=== PATIENT | male | born 1950 | race Caucasian/White ===

== ENCOUNTER 2016-12-15 06:37 | Inpatient (IN) | payer MEDICARE, MEDICAID ==
[2016-12-15] VITALS (21 sets, daily range): BP systolic 137–195; BP diastolic 67–92
[~2016-12-15] VITALS: Ht 167.6 cm; Wt 79.4 kg
[~2016-12-15 06:37] MED LIST: ASPI-986 PO; GABA-531 PO; LOSA50TA20 PO; METF10002 PO; METO100T5 PO; PANT40TA4 PO; POTA10TA11 PO; SIMV40TA5 PO; [UNRECOGNIZED DRUG - OTHER] PO
[2016-12-15] MEDS ORDERED: FURO-151 PO (07:40)
[2016-12-15] MEDS ORDERED: WARF6TAB21 PO (07:40)
[2016-12-15] MEDS ORDERED: FERR325T6 PO (07:40)
[2016-12-15] MEDS ORDERED: GABA-531 PO (07:40)
[2016-12-15] MEDS ORDERED: POTA20TA12 PO (07:40)
[2016-12-15] MEDS ORDERED: METO100T5 PO (07:40)
[2016-12-15] MEDS ORDERED: LIDOCAINE HCL 1% 20ML VIAL (Pyxis) INJ ONE (08:22)
[2016-12-15] MEDS ORDERED: IOHEXOL-300 100 ML BOTTLE ONE (08:23)
[2016-12-15] MEDS ORDERED: MIDAZOLAM HCL 2 MG/2 ML VIAL ONE ×3 (08:37→10:13)
[2016-12-15] MEDS ORDERED: FENTANYL CITRATE/PF 50MCG/ML 2ML VIAL ONE ×2 (08:37→10:13)
[2016-12-15] MEDS ORDERED: IOVERSOL 240MG/ML 100ML BOTTLE IV ONE (09:20)
[2016-12-15] MEDS ORDERED: HYDROMORPHONE HCL/PF 2MG/ML (OR) ONE (09:29)
[2016-12-15] MEDS ORDERED: ASPIRIN 325MG TABLET ONE (10:46)
[2016-12-15] MEDS ORDERED: ATROPINE SULFATE 1MG/10ML SYR IV PRN (11:00)
[2016-12-15] MEDS ORDERED: ACETAMINOPHEN 325MG TABLET PO PRN (11:00)
[2016-12-15] MEDS ORDERED: HEPARIN SODIUM 1,000 UNIT/1ML VIAL IV ONE (11:51)
[2016-12-15] MEDS ORDERED: AMLODIPINE 5MG TABLET PO NR (13:15)
[2016-12-15] MEDS ORDERED: LOSARTAN POTASSIUM 50 MG TABLET PO NR (13:15)
[2016-12-15] MEDS: BLOOD SUGAR DIAGNOSTIC STRIP TEST SCH (23:55)
[2016-12-16] VITALS (7 sets, daily range): BP systolic 128–142; BP diastolic 61–76
[2016-12-16] MEDS ORDERED: LORAZEPAM 1MG TABLET PO PRN (00:15)
[2016-12-16] MEDS ORDERED: DEXTROSE 50% WATER 50ML SYRINGE IV PRN (00:15)
[2016-12-16] MEDS: INSULIN LISPRO 100 UNITS/ML SUBCUT SCH ×2 (00:24→07:20)
[2016-12-16] MEDS: BLOOD SUGAR DIAGNOSTIC STRIP TEST SCH (06:21)
[2016-12-16 07:17] LABS: BASOPHILS % 0.2 % (0.0-2.0); EOSINOPHILS % 1.1 % (0.0-5.0); HEMATOCRIT. 36.9 % (42.0-52.0); HEMOGLOBIN. 12.3 g/dL (14.0-18.0); MEAN CORPUSCULAR VOLUME 77.7 fL (80.0-94.0); MEAN PLATELET VOLUME 7.5 fl (7.4-10.4); MONOCYTES % 9.5 % (2.0-8.0); NEUTROPHILS % 71.2 % (40.0-76.0); PLATELET 228 x1000/uL (130-400); RED BLOOD CELL COUNT 4.75 mill/uL (4.7-6.1); RED CELL DISTRIBUTION WIDTH 14.8 % (11.6-14.6)
[2016-12-16 08:32] LABS: CARBON DIOXIDE 27 mEq/L (21-32); CHLORIDE 97 mEq/L (98-107)
[2016-12-16] MEDS ORDERED: AMLODIPINE 5MG TABLET PO SCH (09:00)
[2016-12-16] MEDS ORDERED: LOSARTAN POTASSIUM 50 MG TABLET PO SCH (09:00)
[2016-12-16] MEDS ORDERED: ASPIRIN 325MG EC TABLET PO SCH (09:00)
== END 2016-12-16 10:30 | disposition home or self-care (01) | DRG 272 ==
LOC: CCL 06:37 → 3WST 06:38
PROVIDERS: ADMIT Specialist; ATTEND Specialist
PROC: 047K3ZZ Dilation of Right Femoral Artery, Percutaneous Approach (ICD-10-PCS; principal; 2016-12-15)
PROC: 04CK3ZZ Extirpation of Matter from Right Femoral Artery, Percutaneous Approach (ICD-10-PCS; 2016-12-15)
PROC: B41F1ZZ Fluoroscopy of Right Lower Extremity Arteries using Low Osmolar Contrast (ICD-10-PCS; 2016-12-15)
DX: E11.51 Type 2 diabetes mellitus with diabetic peripheral angiopathy without gangrene (principal); I10 Essential (primary) hypertension; I70.201 Unspecified atherosclerosis of native arteries of extremities, right leg; I25.10 Atherosclerotic heart disease of native coronary artery without angina pectoris; Z95.1 Presence of aortocoronary bypass graft
CPT/HCPCS: 36415; 37225; 75710; 80048; 82962; 85025; 85347; C1725; C1726; C1760; C1769; C1887; C1893; C1894; J1170; J1644; J1815; J2250; J3010; J3490; J7030; Q9967

== ENCOUNTER 2018-03-04 09:39 | Inpatient (IN) | payer MEDICARE, OTHER ==
[~2018-03-04] VITALS: Ht 167.6 cm; Wt 73.1 kg
[~2018-03-04 09:39] MED LIST changes: +FERR325T6 PO; +FURO-151 PO; +METF-416 PO; -METF10002 PO; +METO100T16 PO; -METO100T5 PO; -POTA10TA11 PO; +POTA20TA12 PO; +WARF6TAB48 PO
[2018-03-04] MEDS ORDERED: MAGNESIUM 2 G PREMIX 50 ML IV STA (10:03)
[2018-03-04] MEDS ORDERED: METHYLPREDNISOLONE SOD SUCC 125 MG/2 ML VIAL IV STA (10:03)
[2018-03-04] MEDS ORDERED: IPRATROPIUM BROMIDE (0.02%) 0.5MG/2.5ML NEB HHN STA (10:03)
[2018-03-04] MEDS ORDERED: ALBUTEROL (0.083%) 2.5MG/3ML NEB HHN STA (10:03)
[2018-03-04 10:30] LABS: BASOPHILS % 0.3 % (0.0-2.0); EOSINOPHILS % 0.7 % (0.0-5.0); HEMATOCRIT. 34.5 % (42.0-52.0); HEMOGLOBIN. 11.2 g/dL (14.0-18.0); LYMPHOCYTES % 18.7 % (20.0-50.0); MEAN CORPUSCULAR HEMOGLOBIN 24.7 pg (28.0-32.0); MEAN CORPUSCULAR VOLUME 76.2 fL (80.0-94.0); MEAN PLATELET VOLUME 6.9 fl (7.4-10.4); MONOCYTES % 8.8 % (2.0-8.0); NEUTROPHILS % 71.5 % (40.0-76.0); PLATELET 327 x1000/uL (130-400); RED BLOOD CELL COUNT 4.53 mill/uL (4.7-6.1); RED CELL DISTRIBUTION WIDTH 16.5 % (11.6-14.6)
[2018-03-04 10:36] LABS: CHLORIDE 97 mEq/L (98-107)
[2018-03-04] MEDS ORDERED: FUROSEMIDE 40MG/4ML VIAL IVP ONE (11:45)
[2018-03-04] MEDS ORDERED: DOCUSATE SODIUM 100MG CAPSULE PO PRN (14:15)
[2018-03-04] MEDS ORDERED: TRAMADOL 50MG TABLET PO PRN (14:15)
[2018-03-04] MEDS ORDERED: CLONIDINE 0.1MG TABLET PO PRN (14:15)
[2018-03-04] MEDS ORDERED: ACETAMINOPHEN 325MG TABLET PO PRN (14:15)
[2018-03-04] MEDS ORDERED: GUAIFENESIN 200MG/10ML SUGAR FREE UDC PO PRN (14:15)
[2018-03-04] MEDS ORDERED: NITROGLYCERIN 0.4MG TABLET SL SL PRN (14:15)
[2018-03-04] MEDS ORDERED: DEXTROSE 50% WATER 50ML SYRINGE IV PRN (14:15)
[2018-03-04] MEDS ORDERED: NA PHOS,M-B/NA PHOS,DI-BA ENEMA 118ML PR PRN (14:15)
[2018-03-04] MEDS ORDERED: MAGNESIUM/ALUMINUM HYDROXIDE/SIMETHICONE 30ML UDC PO PRN (14:15)
[2018-03-04] MEDS ORDERED: ONDANSETRON HCL 4MG/2ML INJ IV PRN (14:15)
[2018-03-04] MEDS ORDERED: IPRATROPIUM/ALBUTEROL 0.5-3(2.5)MG/3ML NEB INH PRN (14:15)
[2018-03-04] MEDS ORDERED: MORPHINE SULFATE 10 MG/ML CPJ IV PRN (14:45)
[2018-03-04 14:55] VITALS: BP 149/79
[2018-03-04 15:00] VITALS: BP 149/79
[2018-03-04 15:01] LABS: VITAMIN B12 SERUM < 60 pg/mL (211-911)
[2018-03-04] MEDS: ENOXAPARIN 40MG/0.4ML SYR SUBCUT SCH (15:09)
[2018-03-04] MEDS: LISINOPRIL 10MG TABLET PO SCH ×2 (15:10→23:30)
[2018-03-04] MEDS ORDERED: LORA1TAB PO (15:24)
[2018-03-04] MEDS ORDERED: OMEP20CA10 PO (15:24)
[2018-03-04] MEDS ORDERED: DIPH1TAB24 PO (15:24)
[2018-03-04] MEDS ORDERED: ASPI-1159 PO (15:24)
[2018-03-04] MEDS ORDERED: MULT-379 PO (15:24)
[2018-03-04] MEDS ORDERED: CLOT15CR2 TP (15:27)
[2018-03-04] MEDS: FUROSEMIDE 40MG/4ML VIAL IVP SCH (17:08)
[2018-03-04] MEDS: CARVEDILOL 3.125 MG TABLET PO SCH (17:08)
[2018-03-04] MEDS: BLOOD SUGAR DIAGNOSTIC STRIP TEST SCH ×2 (17:08→21:31)
[2018-03-04] MEDS: SPIRONOLACTONE 25MG TABLET PO SCH (17:09)
[2018-03-04] MEDS: INSULIN LISPRO 100 UNITS/ML SUBCUT SCH ×2 (17:30→20:52)
[2018-03-04] MEDS: CYANOCOBALAMIN 1000MCG/ML VIAL IM SCH (18:44)
[2018-03-04] MEDS: FAMOTIDINE 20MG TABLET PO SCH (20:36)
[2018-03-04] MEDS: LORAZEPAM 1MG TABLET PO PRN (20:52)
[2018-03-04] MEDS ORDERED: ZOLPIDEM TARTRATE 5MG TABLET PO PRN (21:00)
[2018-03-05] VITALS: BP 111/50
[2018-03-05 00:59] LABS: CREATINE KINASE 102 IU/L (39-308)
[2018-03-05 01:00] LABS: CREATINE KINASE MB FRACTION 2.2 ng/mL (0.5-3.6)
[2018-03-05 04:00] VITALS: BP 108/51
[2018-03-05] MEDS: CARVEDILOL 3.125 MG TABLET PO SCH ×2 (06:00→17:58)
[2018-03-05] MEDS: FUROSEMIDE 40MG/4ML VIAL IVP SCH ×2 (06:06→17:58)
[2018-03-05] MEDS: SPIRONOLACTONE 25MG TABLET PO SCH ×2 (06:07→17:58)
[2018-03-05] MEDS: BLOOD SUGAR DIAGNOSTIC STRIP TEST SCH ×4 (06:07→20:35)
[2018-03-05] MEDS: INSULIN LISPRO 100 UNITS/ML SUBCUT SCH ×4 (06:47→20:33)
[2018-03-05 08:00] VITALS: BP 130/61
[2018-03-05 08:05] LABS: CREATINE KINASE 106 IU/L (39-308)
[2018-03-05] MEDS: ASPIRIN 325MG EC TABLET PO SCH ×2 (09:00→09:45)
[2018-03-05 09:11] LABS: *AMPHETAMINES SCREEN URINE NEGATIVE (NEGATIVE); *BARBITURATES SCREEN URINE NEGATIVE (NEGATIVE); *BENZODIAZEPINES SCREEN URINE NEGATIVE (NEGATIVE); *COCAINE SCREEN URINE NEGATIVE (NEGATIVE); METHADONE URINE SCREEN NEGATIVE (NEGATIVE)
[2018-03-05 09:12] LABS: CANNABINOID URINE SCREEN NEGATIVE (NEGATIVE); OPIATES URINE SCREEN NEGATIVE (NEGATIVE); PHENCYCLIDINE URINE SCREEN NEGATIVE (NEGATIVE)
[2018-03-05] MEDS: CYANOCOBALAMIN 1000MCG/ML VIAL IM SCH (09:45)
[2018-03-05] MEDS: LISINOPRIL 10MG TABLET PO SCH ×2 (09:45→20:35)
[2018-03-05] MEDS: FAMOTIDINE 20MG TABLET PO SCH ×2 (09:45→20:35)
[2018-03-05 12:00] VITALS: BP 143/77
[2018-03-05 16:00] VITALS: BP 121/59
[2018-03-05] MEDS: ENOXAPARIN 40MG/0.4ML SYR SUBCUT SCH (17:59)
[2018-03-05 20:00] VITALS: BP 127/59
[2018-03-06] VITALS: BP 117/51
[2018-03-06 04:00] VITALS: BP 124/46
[2018-03-06] MEDS: FUROSEMIDE 40MG/4ML VIAL IVP SCH ×2 (05:51→17:06)
[2018-03-06] MEDS: CARVEDILOL 3.125 MG TABLET PO SCH ×2 (05:51→17:07)
[2018-03-06] MEDS: SPIRONOLACTONE 25MG TABLET PO SCH ×2 (05:52→17:07)
[2018-03-06] MEDS: INSULIN LISPRO 100 UNITS/ML SUBCUT SCH ×4 (06:14→20:17)
[2018-03-06] MEDS: BLOOD SUGAR DIAGNOSTIC STRIP TEST SCH ×4 (06:14→20:17)
[2018-03-06 08:00] VITALS: BP 154/56
[2018-03-06] MEDS: LORAZEPAM 1MG TABLET PO PRN (08:48)
[2018-03-06] MEDS: CYANOCOBALAMIN 1000MCG/ML VIAL IM SCH (08:48)
[2018-03-06] MEDS: ASPIRIN 325MG EC TABLET PO SCH (08:49)
[2018-03-06] MEDS: FAMOTIDINE 20MG TABLET PO SCH ×2 (08:49→20:13)
[2018-03-06] MEDS: LISINOPRIL 10MG TABLET PO SCH ×2 (08:49→20:13)
[2018-03-06 12:00] VITALS: BP 144/60
[2018-03-06] MEDS: ENOXAPARIN 40MG/0.4ML SYR SUBCUT SCH (15:29)
[2018-03-06 16:00] VITALS: BP 165/68
[2018-03-06 20:00] VITALS: BP 135/74
[2018-03-07] VITALS: BP 113/51
[2018-03-07 04:00] VITALS: BP 113/54
[2018-03-07] MEDS: SPIRONOLACTONE 25MG TABLET PO SCH (05:31)
[2018-03-07] MEDS: CARVEDILOL 3.125 MG TABLET PO SCH (05:32)
[2018-03-07] MEDS: FUROSEMIDE 40MG/4ML VIAL IVP SCH (05:33)
[2018-03-07] MEDS: INSULIN LISPRO 100 UNITS/ML SUBCUT SCH ×2 (06:52→12:15)
[2018-03-07] MEDS: BLOOD SUGAR DIAGNOSTIC STRIP TEST SCH ×2 (06:52→11:36)
[2018-03-07 08:00] VITALS: BP 121/59
[2018-03-07] MEDS: ASPIRIN 325MG EC TABLET PO SCH (08:05)
[2018-03-07] MEDS: CYANOCOBALAMIN 1000MCG/ML VIAL IM SCH (08:05)
[2018-03-07] MEDS: FAMOTIDINE 20MG TABLET PO SCH (08:05)
[2018-03-07] MEDS: LISINOPRIL 10MG TABLET PO SCH (08:05)
[2018-03-07 13:21] VITALS: BP 121/59
== END 2018-03-07 14:35 | disposition home or self-care (01) | DRG 291 ==
LOC: ER 09:39 → 5WST 12:31 → EDBEDREQ 12:54 → EDBEDREQTM 12:54 → SUPCPDRO 13:40 → ENRESERV 13:59
PROVIDERS: ADMIT Internal Medicine; ATTEND Internal Medicine
DX: I11.0 Hypertensive heart disease with heart failure (principal); J96.00 Acute respiratory failure, unspecified whether with hypoxia or hypercapnia; E87.1 Hypo-osmolality and hyponatremia; E11.9 Type 2 diabetes mellitus without complications; D63.8 Anemia in other chronic diseases classified elsewhere; I25.10 Atherosclerotic heart disease of native coronary artery without angina pectoris; I50.33 Acute on chronic diastolic (congestive) heart failure; E53.8 Deficiency of other specified B group vitamins; I27.20 Pulmonary hypertension, unspecified; J44.9 Chronic obstructive pulmonary disease, unspecified; Z95.1 Presence of aortocoronary bypass graft; I25.2 Old myocardial infarction; Z79.4 Long term (current) use of insulin; Z79.899 Other long term (current) drug therapy; Z79.82 Long term (current) use of aspirin
CPT/HCPCS: 36415; 71045; 80061; 80305; 82550; 82553; 82607; 82746; 82962; 83036; 83540; 83550; 83880; 84484; 93005; 93306; 93970; 94644; 97161; 97166; 99285; J1650; J1815; J1940; J2930; J3420; J3475; J7611

== ENCOUNTER 2018-07-01 01:53 | Inpatient (IN) | payer MEDICARE, OTHER ==
[~2018-07-01] VITALS: Ht 167.6 cm; Wt 76.2 kg
[~2018-07-01 01:53] MED LIST changes: +ASPI-1159 PO; -ASPI-986 PO; +CLOT15CR2 TP; +DIPH1TAB24 PO; -FERR325T6 PO; +LORA1TAB PO; +MULT-379 PO; +OMEP20CA10 PO; -PANT40TA4 PO; -POTA20TA12 PO
[2018-07-01] MEDS ORDERED: FUROSEMIDE 40MG/4ML VIAL IV ONE (02:45)
[2018-07-01] MEDS ORDERED: ASPIRIN 81MG TABLET PO ONE (02:45)
[2018-07-01] MEDS ORDERED: NITROGLYCERIN OINT 1GM/INCH UDPKT TD ONE (02:45)
[2018-07-01 02:57] LABS: BASOPHILS % 0.2 % (0.0-2.0); EOSINOPHILS % 0.5 % (0.0-5.0); HEMATOCRIT. 38.8 % (42.0-52.0); HEMOGLOBIN. 12.3 g/dL (14.0-18.0); MEAN CORPUSCULAR HEMOGLOBIN 23.7 pg (28.0-32.0); MEAN CORPUSCULAR VOLUME 74.8 fL (80.0-94.0); MEAN PLATELET VOLUME 7.3 fl (7.4-10.4); MONOCYTES % 7.9 % (2.0-8.0); NEUTROPHILS % 73.4 % (40.0-76.0); PLATELET 353 x1000/uL (130-400); RED BLOOD CELL COUNT 5.18 mill/uL (4.7-6.1); RED CELL DISTRIBUTION WIDTH 18.5 % (11.6-14.6)
[2018-07-01 03:01] LABS: CHLORIDE 103 mEq/L (98-107)
[2018-07-01 03:12] LABS: D-DIMER 1.42 mg/L FEU (<0.50); PARTIAL THROMBOPLASTIN TIME 44.8 sec (23.4-31.0); PROTHROMBIN TIME 60.2 sec (9.6-11.0)
[2018-07-01 03:18] LABS: INR 6.3
[2018-07-01] MEDS ORDERED: IOHEXOL-350 100 ML BOTTLE ONE (05:53)
[2018-07-01] MEDS: FUROSEMIDE 40MG/4ML VIAL IVP SCH ×2 (06:00→10:24)
[2018-07-01] MEDS: BLOOD SUGAR DIAGNOSTIC STRIP TEST SCH ×2 (06:00→17:00)
[2018-07-01] MEDS ORDERED: DEXTROSE 50% WATER 50ML SYRINGE IV PRN (09:15)
[2018-07-01] MEDS ORDERED: ONDANSETRON HCL 4MG/2ML INJ IV PRN (09:15)
[2018-07-01] MEDS ORDERED: ACETAMINOPHEN 325MG TABLET PO PRN (09:15)
[2018-07-01] MEDS: INSULIN LISPRO 100 UNITS/ML SUBCUT SCH (13:20)
[2018-07-01 21:47] VITALS: BP 130/53
[2018-07-02] VITALS: BP 137/61
[2018-07-02 04:00] VITALS: BP 99/66
[2018-07-02] MEDS: FUROSEMIDE 40MG/4ML VIAL IVP SCH (06:20)
[2018-07-02 06:44] LABS: BASOPHILS % 0.2 % (0.0-2.0); EOSINOPHILS % 1.1 % (0.0-5.0); HEMATOCRIT. 38.3 % (42.0-52.0); HEMOGLOBIN. 12.3 g/dL (14.0-18.0); LYMPHOCYTES % 15.5 % (20.0-50.0); MEAN CORPUSCULAR VOLUME 74.7 fL (80.0-94.0); MEAN PLATELET VOLUME 7.5 fl (7.4-10.4); MONOCYTES % 8.4 % (2.0-8.0); NEUTROPHILS % 74.8 % (40.0-76.0); PLATELET 323 x1000/uL (130-400); PROTHROMBIN TIME 69.3 sec (9.6-11.0); RED BLOOD CELL COUNT 5.12 mill/uL (4.7-6.1); RED CELL DISTRIBUTION WIDTH 18.3 % (11.6-14.6)
[2018-07-02 06:50] LABS: INR 7.4
[2018-07-02 07:11] LABS: CHLORIDE 100 mEq/L (98-107)
[2018-07-02 08:00] VITALS: BP 119/56
[2018-07-02] MEDS: LOSARTAN POTASSIUM 25 MG TABLET PO SCH (08:24)
[2018-07-02] MEDS: BLOOD SUGAR DIAGNOSTIC STRIP TEST SCH ×4 (08:26→20:51)
[2018-07-02 12:00] VITALS: BP 106/48
[2018-07-02] MEDS ORDERED: LORAZEPAM 0.5MG TABLET PO PRN (12:30)
[2018-07-02] MEDS ORDERED: LORAZEPAM 1MG TABLET PO PRN (12:30)
[2018-07-02] MEDS ORDERED: PHYTONADIONE 10MG/ML AMP SUBCUT NR ×2 (12:30→19:01)
[2018-07-02] MEDS: INSULIN LISPRO 100 UNITS/ML SUBCUT SCH ×3 (12:56→20:55)
[2018-07-02] MEDS ORDERED: FUROSEMIDE 40MG/4ML VIAL IVP SCH ×2 (13:45→22:00)
[2018-07-02] MEDS: POTASSIUM CHLORIDE 20MEQ TABLET SR PO SCH (14:16)
[2018-07-02 16:00] VITALS: BP 116/52
[2018-07-02 20:00] VITALS: BP 112/54
[2018-07-02] MEDS: ATORVASTATIN CALCIUM 20MG TABLET PO SCH (20:50)
[2018-07-03] VITALS (7 sets, daily range): BP systolic 100–130; BP diastolic 35–56
[2018-07-03] MEDS: BLOOD SUGAR DIAGNOSTIC STRIP TEST SCH ×4 (05:48→21:55)
[2018-07-03 06:07] LABS: PROTHROMBIN TIME 43.8 sec (9.6-11.0)
[2018-07-03 06:11] LABS: BASOPHILS % 0.2 % (0.0-2.0); EOSINOPHILS % 0.9 % (0.0-5.0); HEMATOCRIT. 32.8 % (42.0-52.0); HEMOGLOBIN. 10.4 g/dL (14.0-18.0); LYMPHOCYTES % 17.6 % (20.0-50.0); MEAN CORPUSCULAR HEMOGLOBIN 23.4 pg (28.0-32.0); MEAN CORPUSCULAR VOLUME 73.5 fL (80.0-94.0); MEAN PLATELET VOLUME 7.3 fl (7.4-10.4); MONOCYTES % 9.2 % (2.0-8.0); NEUTROPHILS % 72.1 % (40.0-76.0); PLATELET 306 x1000/uL (130-400); RED BLOOD CELL COUNT 4.46 mill/uL (4.7-6.1); RED CELL DISTRIBUTION WIDTH 18.6 % (11.6-14.6)
[2018-07-03 06:53] LABS: CHLORIDE 98 mEq/L (98-107)
[2018-07-03 07:27] LABS: INR 4.5
[2018-07-03] MEDS: INSULIN LISPRO 100 UNITS/ML SUBCUT SCH ×4 (08:10→21:48)
[2018-07-03] MEDS: POTASSIUM CHLORIDE 20MEQ TABLET SR PO SCH (08:59)
[2018-07-03] MEDS ORDERED: CARVEDILOL 3.125 MG TABLET PO NR (10:15)
[2018-07-03] MEDS: LOSARTAN POTASSIUM 25 MG TABLET PO SCH (10:57)
[2018-07-03] MEDS: CARVEDILOL 3.125 MG TABLET PO SCH (21:00)
[2018-07-03] MEDS: ATORVASTATIN CALCIUM 20MG TABLET PO SCH (21:17)
[2018-07-03] MEDS: FUROSEMIDE 100MG/10ML VIAL IVP SCH (22:23)
[2018-07-04] VITALS: BP 128/66
[2018-07-04 04:00] VITALS: BP 110/51
[2018-07-04] MEDS: BLOOD SUGAR DIAGNOSTIC STRIP TEST SCH ×4 (05:40→21:28)
[2018-07-04 06:24] LABS: BASOPHILS % 0.3 % (0.0-2.0); HEMATOCRIT. 35.4 % (42.0-52.0); HEMOGLOBIN. 11.3 g/dL (14.0-18.0); LYMPHOCYTES % 15.8 % (20.0-50.0); MEAN CORPUSCULAR HEMOGLOBIN 23.6 pg (28.0-32.0); MEAN PLATELET VOLUME 7.4 fl (7.4-10.4); MONOCYTES % 10.8 % (2.0-8.0); NEUTROPHILS % 72.1 % (40.0-76.0); PLATELET 319 x1000/uL (130-400); RED BLOOD CELL COUNT 4.78 mill/uL (4.7-6.1); RED CELL DISTRIBUTION WIDTH 18.6 % (11.6-14.6)
[2018-07-04 06:28] LABS: INR 1.9; PROTHROMBIN TIME 18.5 sec (9.6-11.0)
[2018-07-04 06:47] LABS: CHLORIDE 94 mEq/L (98-107)
[2018-07-04 08:00] VITALS: BP 135/67
[2018-07-04] MEDS: INSULIN LISPRO 100 UNITS/ML SUBCUT SCH ×4 (08:10→22:00)
[2018-07-04] MEDS: LOSARTAN POTASSIUM 25 MG TABLET PO SCH ×2 (09:04→17:00)
[2018-07-04] MEDS: FUROSEMIDE 100MG/10ML VIAL IVP SCH ×2 (09:04→21:12)
[2018-07-04] MEDS: CARVEDILOL 3.125 MG TABLET PO SCH ×2 (09:04→21:12)
[2018-07-04] MEDS: POTASSIUM CHLORIDE 20MEQ TABLET SR PO SCH (09:04)
[2018-07-04 12:00] VITALS: BP 141/64
[2018-07-04 16:00] VITALS: BP 106/49
[2018-07-04] MEDS ORDERED: WARFARIN SODIUM 4MG TABLET PO SCH (18:00)
[2018-07-04 20:25] VITALS: BP 111/52
[2018-07-04] MEDS ORDERED: FUROSEMIDE 100MG/10ML VIAL IVP SCH (21:00)
[2018-07-04] MEDS: ATORVASTATIN CALCIUM 20MG TABLET PO SCH (21:11)
[2018-07-05 04:00] VITALS: BP 120/40
[2018-07-05 06:11] LABS: BASOPHILS % 0.3 % (0.0-2.0); EOSINOPHILS % 1.2 % (0.0-5.0); HEMATOCRIT. 34.9 % (42.0-52.0); HEMOGLOBIN. 11.1 g/dL (14.0-18.0); LYMPHOCYTES % 18.1 % (20.0-50.0); MEAN CORPUSCULAR HEMOGLOBIN 23.6 pg (28.0-32.0); MEAN CORPUSCULAR VOLUME 73.7 fL (80.0-94.0); MEAN PLATELET VOLUME 7.4 fl (7.4-10.4); NEUTROPHILS % 70.4 % (40.0-76.0); PLATELET 336 x1000/uL (130-400); RED BLOOD CELL COUNT 4.73 mill/uL (4.7-6.1)
[2018-07-05 06:17] LABS: CHLORIDE 95 mEq/L (98-107)
[2018-07-05 06:52] LABS: INR 1.3
[2018-07-05] MEDS: BLOOD SUGAR DIAGNOSTIC STRIP TEST SCH ×2 (07:40→12:35)
[2018-07-05 08:00] VITALS: BP 124/63
[2018-07-05] MEDS: INSULIN LISPRO 100 UNITS/ML SUBCUT SCH ×2 (08:10→13:03)
[2018-07-05] MEDS: LOSARTAN POTASSIUM 25 MG TABLET PO SCH (09:00)
[2018-07-05] MEDS: POTASSIUM CHLORIDE 20MEQ TABLET SR PO SCH (09:00)
[2018-07-05] MEDS: FUROSEMIDE 100MG/10ML VIAL IVP SCH (09:01)
[2018-07-05] MEDS: CARVEDILOL 3.125 MG TABLET PO SCH (09:01)
[2018-07-05 12:00] VITALS: BP 138/68
== END 2018-07-05 15:35 | disposition home health service (06) | DRG 292 ==
LOC: ER 01:53 → 7WST 05:17 → ENRESERV 19:16
PROVIDERS: ADMIT Internal Medicine; ATTEND Internal Medicine
DX: I11.0 Hypertensive heart disease with heart failure (principal); D68.59 Other primary thrombophilia; D68.9 Coagulation defect, unspecified; I50.43 Acute on chronic combined systolic (congestive) and diastolic (congestive) heart failure; D64.9 Anemia, unspecified; E11.51 Type 2 diabetes mellitus with diabetic peripheral angiopathy without gangrene; J44.9 Chronic obstructive pulmonary disease, unspecified; I27.20 Pulmonary hypertension, unspecified; R16.0 Hepatomegaly, not elsewhere classified; I25.5 Ischemic cardiomyopathy; I25.10 Atherosclerotic heart disease of native coronary artery without angina pectoris; I48.2 Chronic atrial fibrillation; E78.5 Hyperlipidemia, unspecified; K21.9 Gastro-esophageal reflux disease without esophagitis; Z79.01 Long term (current) use of anticoagulants; Z95.1 Presence of aortocoronary bypass graft; Z87.891 Personal history of nicotine dependence; Z79.899 Other long term (current) drug therapy
CPT/HCPCS: 36415; 71045; 71275; 80048; 82962; 83880; 84484; 85379; 93005; 93306; 93970; 96374; 96376; 99285; J1815; J1940; J3430; Q9967

== ENCOUNTER 2018-08-15 17:35 | Inpatient (IN) | payer MEDICARE, MEDICAID ==
[~2018-08-15] VITALS: Ht 167.6 cm; Wt 75.6 kg
[~2018-08-15 17:35] MED LIST changes: -ASPI-1159 PO; +ASPI-1393 PO; -FURO-151 PO; -LOSA50TA20 PO; +LOSA50TA41 PO; -OMEP20CA10 PO; +OMEP20CA5 PO
[2018-08-15] MEDS ORDERED: METHYLPREDNISOLONE SOD SUCC 125 MG/2 ML VIAL IV STA (18:08)
[2018-08-15] MEDS ORDERED: IPRATROPIUM BROMIDE (0.02%) 0.5MG/2.5ML NEB HHN STA (18:08)
[2018-08-15] MEDS ORDERED: ALBUTEROL (0.083%) 2.5MG/3ML NEB HHN STA (18:08)
[2018-08-15] MEDS ORDERED: ALBUTEROL (0.5%) 2.5MG/0.5ML NEB HHN ONE (18:25)
[2018-08-15] MEDS ORDERED: ALBUTEROL (0.083%) 2.5MG/3ML NEB ONE (18:26)
[2018-08-15] MEDS ORDERED: IPRATROPIUM BROMIDE (0.02%) 0.5MG/2.5ML NEB ONE (18:27)
[2018-08-15 19:33] LABS: BASOPHILS % 0.5 % (0.0-2.0); EOSINOPHILS % 2.1 % (0.0-5.0); HEMATOCRIT. 33.6 % (42.0-52.0); HEMOGLOBIN. 10.5 g/dL (14.0-18.0); LYMPHOCYTES % 26.4 % (20.0-50.0); MEAN CORPUSCULAR HEMOGLOBIN 22.6 pg (28.0-32.0); MEAN CORPUSCULAR VOLUME 72.1 fL (80.0-94.0); MEAN PLATELET VOLUME 7.2 fl (7.4-10.4); MONOCYTES % 8.1 % (2.0-8.0); NEUTROPHILS % 62.9 % (40.0-76.0); PLATELET 264 x1000/uL (130-400); RED BLOOD CELL COUNT 4.66 mill/uL (4.7-6.1); RED CELL DISTRIBUTION WIDTH 19.7 % (11.6-14.6)
[2018-08-15 19:35] LABS: CHLORIDE 104 mEq/L (98-107)
[2018-08-15] MEDS ORDERED: FUROSEMIDE 40MG/4ML VIAL IVP ONE (19:45)
[2018-08-15] MEDS ORDERED: ENALAPRIL 2.5MG/2ML VIAL 2ML IV ONE (20:00)
[2018-08-15 20:24] LABS: BG BASE EXCESS -1.5 mmol/L (-2.0-2.0); BG CARBOXYHEMOGLOBIN 0.5 % (0.5-1.5); BG DEOXYHEMOGLOBIN 9.9 % (0.0-5.0); BG FRACTION INSPIRED OXYGEN 32; BG HCO3 ACT 22.4 mmol/L (22.0-26.0); BG METHEMOGLOBIN 1.1 % (0.0-1.5); BG OXYGEN SATURATION 89.9 % (92.0-98.5); BG OXYHEMOGLOBIN 88.5 % (94.0-97.0); BG PCO2 34.6 mmHg (35.0-45.0); BG PH 7.429 (7.350-7.450); BG PO2 64.2 mmHg (75.0-100.0); BG SAMPLE SITE LEFT RADIAL; BG TOTAL HEMOGLOBIN 10.6 g/dL (12.0-18.0); BG VENT MODE NASAL CANNULA
[2018-08-15 22:58] VITALS: BP 123/40
[2018-08-15 23:00] VITALS: BP 123/40
[2018-08-16] VITALS: BP 130/58
[2018-08-16] MEDS ORDERED: DEXTROSE 50% WATER 50ML SYRINGE IV PRN ×2 (00:15→11:15)
[2018-08-16] MEDS ORDERED: ATROV INH (01:38)
[2018-08-16] MEDS ORDERED: OMEP20CA5 PO (01:38)
[2018-08-16] MEDS ORDERED: ATOR40TA70 PO (01:38)
[2018-08-16] MEDS ORDERED: CARV3.1242 PO (01:41)
[2018-08-16] MEDS ORDERED: FURO80TA3 PO (01:41)
[2018-08-16] MEDS ORDERED: POTA-79 PO (02:06)
[2018-08-16] MEDS ORDERED: LORAZEPAM 1MG TABLET PO PRN (02:30)
[2018-08-16] MEDS ORDERED: NON FORMULARY PATIENT HOME MED XX SCH (02:45)
[2018-08-16 04:00] VITALS: BP 130/58
[2018-08-16 05:32] LABS: INR 2.6
[2018-08-16] MEDS ORDERED: FUROSEMIDE 40MG/4ML VIAL IVP SCH (07:30)
[2018-08-16] MEDS: BLOOD SUGAR DIAGNOSTIC STRIP TEST SCH ×4 (07:37→21:00)
[2018-08-16 08:00] VITALS: BP 124/48
[2018-08-16] MEDS: IPRATROPIUM/ALBUTEROL 0.5-3(2.5)MG/3ML NEB HHN SCH ×4 (08:00→20:58)
[2018-08-16] MEDS ORDERED: INSULIN LISPRO 100 UNITS/ML SUBCUT SCH (08:10)
[2018-08-16] MEDS: LOSARTAN POTASSIUM 50 MG TABLET PO SCH (08:52)
[2018-08-16] MEDS: ASPIRIN 81MG TABLET PO SCH (08:59)
[2018-08-16] MEDS: OMEPRAZOLE 20MG CAPSULE EXTENDED RELEASE PO SCH (08:59)
[2018-08-16] MEDS: POTASSIUM CHLORIDE 20MEQ TABLET SR PO SCH (08:59)
[2018-08-16] MEDS: METFORMIN HCL 500MG TABLET PO SCH ×2 (09:00→18:31)
[2018-08-16] MEDS ORDERED: CARVEDILOL 3.125 MG TABLET PO SCH (09:00)
[2018-08-16] MEDS ORDERED: FUROSEMIDE 40MG TABLET PO SCH (09:00)
[2018-08-16 09:07] LABS: HEMATOCRIT. 32.3 % (42.0-52.0); MEAN CORPUSCULAR HEMOGLOBIN 22.4 pg (28.0-32.0); MEAN CORPUSCULAR VOLUME 72.2 fL (80.0-94.0); MEAN PLATELET VOLUME 7.7 fl (7.4-10.4); PLATELET 232 x1000/uL (130-400); RED BLOOD CELL COUNT 4.48 mill/uL (4.7-6.1); RED CELL DISTRIBUTION WIDTH 19.9 % (11.6-14.6)
[2018-08-16 12:00] VITALS: BP 123/50
[2018-08-16 12:40] LABS: PLATELET ESTIMATE NORMAL
[2018-08-16] MEDS ORDERED: BLOOD SUGAR DIAGNOSTIC STRIP TEST SCH (12:40)
[2018-08-16] MEDS: INSULIN LISPRO 100 UNITS/ML SUBCUT SCH ×3 (14:44→22:10)
[2018-08-16] MEDS: CLOTRIMAZOLE 1% CREAM 30GM TOP SCH (17:08)
[2018-08-16] MEDS ORDERED: WARFARIN SODIUM 3MG TABLET PO NR (18:00)
[2018-08-16] MEDS: FUROSEMIDE 100MG/10ML VIAL IV SCH (18:27)
[2018-08-16] MEDS ORDERED: WARF3TAB58 MT (19:57)
[2018-08-16 20:00] VITALS: BP 119/53
[2018-08-16] MEDS ORDERED: ONDANSETRON HCL 4MG/2ML INJ IV PRN (21:30)
[2018-08-16] MEDS ORDERED: HYDROCODONE/ACETAMINOPHEN 5/325MG TABLET PO PRN (21:30)
[2018-08-16] MEDS ORDERED: MORPHINE SULFATE 2 MG/ML CPJ (NOT FOR IM USE) IV PRN (21:30)
[2018-08-16] MEDS: LOPERAMIDE HCL 2MG CAPSULE PO PRN (22:07)
[2018-08-16] MEDS: CARVEDILOL 6.25 MG TABLET PO SCH (22:07)
[2018-08-16] MEDS: ATORVASTATIN CALCIUM 40MG TABLET PO SCH (22:08)
[2018-08-16] MEDS: INSULIN GLARGINE UD 100 UNITS/ML SYR SUBCUT SCH (22:09)
[2018-08-17] VITALS: BP 124/57
[2018-08-17] MEDS: IPRATROPIUM/ALBUTEROL 0.5-3(2.5)MG/3ML NEB HHN SCH ×5 (00:26→21:29)
[2018-08-17 04:00] VITALS: BP 132/52
[2018-08-17 05:40] LABS: CHLORIDE 104 mEq/L (98-107)
[2018-08-17 05:48] LABS: D-DIMER 0.8 mg/L FEU (<0.50); INR 2.5; PROTHROMBIN TIME 24.8 sec (9.6-11.0)
[2018-08-17 05:49] LABS: LDL CHOLESTEROL 84 mg/dL (5-100)
[2018-08-17 05:51] LABS: CREATINE KINASE 471 IU/L (39-308); CREATINE KINASE MB FRACTION 2.7 ng/mL (0.5-3.6)
[2018-08-17 05:52] LABS: HDL CHOLESTEROL 31 mg/dL (40-59)
[2018-08-17 06:28] LABS: HEMATOCRIT. 30.7 % (42.0-52.0); HEMOGLOBIN. 9.7 g/dL (14.0-18.0); MEAN CORPUSCULAR HEMOGLOBIN 22.6 pg (28.0-32.0); MEAN CORPUSCULAR VOLUME 71.7 fL (80.0-94.0); MEAN PLATELET VOLUME 7.6 fl (7.4-10.4); PLATELET 271 x1000/uL (130-400); RED BLOOD CELL COUNT 4.28 mill/uL (4.7-6.1); RED CELL DISTRIBUTION WIDTH 19.6 % (11.6-14.6)
[2018-08-17] MEDS: FUROSEMIDE 100MG/10ML VIAL IV SCH ×2 (06:42→18:39)
[2018-08-17] MEDS: BLOOD SUGAR DIAGNOSTIC STRIP TEST SCH ×4 (07:40→20:59)
[2018-08-17 08:00] VITALS: BP 96/45
[2018-08-17] MEDS: POTASSIUM CHLORIDE 20MEQ TABLET SR PO SCH (08:04)
[2018-08-17] MEDS: METFORMIN HCL 500MG TABLET PO SCH ×2 (08:04→18:37)
[2018-08-17] MEDS: CARVEDILOL 6.25 MG TABLET PO SCH ×2 (08:04→20:25)
[2018-08-17] MEDS: OMEPRAZOLE 20MG CAPSULE EXTENDED RELEASE PO SCH (08:04)
[2018-08-17] MEDS: LOSARTAN POTASSIUM 50 MG TABLET PO SCH (08:04)
[2018-08-17] MEDS: ASPIRIN 81MG TABLET PO SCH (08:04)
[2018-08-17] MEDS: INSULIN LISPRO 100 UNITS/ML SUBCUT SCH ×4 (08:05→20:59)
[2018-08-17] MEDS: CLOTRIMAZOLE 1% CREAM 30GM TOP SCH (08:06)
[2018-08-17 09:56] LABS: PLATELET ESTIMATE NORMAL
[2018-08-17] MEDS: INSULIN GLARGINE UD 100 UNITS/ML SYR SUBCUT SCH ×2 (10:17→20:59)
[2018-08-17 12:00] VITALS: BP 104/56
[2018-08-17] MEDS ORDERED: FUROSEMIDE 40MG/4ML VIAL IVP NR (12:00)
[2018-08-17] MEDS: METOLAZONE 2.5MG TABLET PO SCH (14:13)
[2018-08-17] MEDS: GABAPENTIN 300MG CAPSULE PO SCH ×2 (14:13→21:06)
[2018-08-17] MEDS ORDERED: METO100T16 MT (15:20)
[2018-08-17] MEDS ORDERED: SIME80TA15 MT (15:20)
[2018-08-17] MEDS ORDERED: INSU100I28 SQ (15:20)
[2018-08-17] MEDS ORDERED: ATROV INH (15:20)
[2018-08-17] MEDS ORDERED: DIPH1TAB24 MT (15:20)
[2018-08-17 16:00] VITALS: BP 100/37
[2018-08-17] MEDS ORDERED: LOPERAMIDE HCL 2MG CAPSULE PO PRN (18:00)
[2018-08-17] MEDS ORDERED: WARFARIN SODIUM 3MG TABLET PO NR (18:00)
[2018-08-17] MEDS: LOPERAMIDE HCL 2MG CAPSULE PO PRN (18:37)
[2018-08-17 20:00] VITALS: BP 104/44
[2018-08-17] MEDS: ATORVASTATIN CALCIUM 40MG TABLET PO SCH (21:06)
[2018-08-17] MEDS: LORAZEPAM 1MG TABLET PO PRN (23:34)
[2018-08-18] VITALS: BP 106/55
[2018-08-18] MEDS: IPRATROPIUM/ALBUTEROL 0.5-3(2.5)MG/3ML NEB HHN SCH ×6 (00:44→20:56)
[2018-08-18 04:00] VITALS: BP_SYST 103; BP_SYST 107; BP_DIAS 48
[2018-08-18] MEDS: BLOOD SUGAR DIAGNOSTIC STRIP TEST SCH ×4 (05:11→20:19)
[2018-08-18] MEDS: FUROSEMIDE 100MG/10ML VIAL IV SCH ×3 (05:23→18:48)
[2018-08-18] MEDS: METOLAZONE 2.5MG TABLET PO SCH ×2 (05:23→05:29)
[2018-08-18 06:03] LABS: CLARITY URINE CLEAR (CLEAR); COLOR URINE YELLOW (YELLOW); KETONES URINE NEGATIVE (NEGATIVE); LEUKOCYTE ESTERASE URINE NEGATIVE (NEGATIVE); NITRITE URINE NEGATIVE (NEGATIVE); OCCULT BLOOD URINE NEGATIVE (NEGATIVE); PROTEIN URINE NEGATIVE (NEGATIVE); SPECIFIC GRAVITY URINE 1.007 (1.005-1.030); UROBILINOGEN URINE 0.2 E.U./dL (0.2-1.0)
[2018-08-18 06:28] LABS: BASOPHILS % 0.1 % (0.0-2.0); EOSINOPHILS % 1.4 % (0.0-5.0); HEMATOCRIT. 30.6 % (42.0-52.0); HEMOGLOBIN. 9.7 g/dL (14.0-18.0); LYMPHOCYTES % 18.9 % (20.0-50.0); MEAN CORPUSCULAR HEMOGLOBIN 22.8 pg (28.0-32.0); MEAN CORPUSCULAR VOLUME 71.9 fL (80.0-94.0); MEAN PLATELET VOLUME 7.4 fl (7.4-10.4); MONOCYTES % 8.3 % (2.0-8.0); NEUTROPHILS % 71.3 % (40.0-76.0); PLATELET 255 x1000/uL (130-400); RED BLOOD CELL COUNT 4.26 mill/uL (4.7-6.1); RED CELL DISTRIBUTION WIDTH 19.6 % (11.6-14.6)
[2018-08-18 06:41] LABS: INR 2.4; PROTHROMBIN TIME 23.8 sec (9.6-11.0)
[2018-08-18 08:00] VITALS: BP 111/54
[2018-08-18] MEDS: INSULIN LISPRO 100 UNITS/ML SUBCUT SCH ×4 (08:10→21:00)
[2018-08-18] MEDS: CARVEDILOL 6.25 MG TABLET PO SCH ×2 (09:00→21:45)
[2018-08-18] MEDS: LOSARTAN POTASSIUM 50 MG TABLET PO SCH (09:00)
[2018-08-18] MEDS: METFORMIN HCL 500MG TABLET PO SCH ×2 (09:11→18:47)
[2018-08-18] MEDS: ASPIRIN 81MG TABLET PO SCH (09:12)
[2018-08-18] MEDS: OMEPRAZOLE 20MG CAPSULE EXTENDED RELEASE PO SCH (09:12)
[2018-08-18] MEDS: POTASSIUM CHLORIDE 20MEQ TABLET SR PO SCH (09:14)
[2018-08-18] MEDS: CLOTRIMAZOLE 1% CREAM 30GM TOP SCH (09:18)
[2018-08-18] MEDS: INSULIN GLARGINE UD 100 UNITS/ML SYR SUBCUT SCH ×2 (09:19→21:48)
[2018-08-18] MEDS: GABAPENTIN 300MG CAPSULE PO SCH ×3 (09:21→21:45)
[2018-08-18 12:00] VITALS: BP 122/53
[2018-08-18] MEDS ORDERED: MAGNESIUM 2 G PREMIX 50 ML IV SCH (15:00)
[2018-08-18 16:00] VITALS: BP 111/59
[2018-08-18] MEDS ORDERED: WARFARIN SODIUM 3MG TABLET PO SCH (18:00)
[2018-08-18 20:00] VITALS: BP 123/51
[2018-08-18] MEDS: ATORVASTATIN CALCIUM 40MG TABLET PO SCH (21:43)
[2018-08-19] VITALS: BP_SYST 105; BP_SYST 135; BP_DIAS 41; BP_DIAS 92
[2018-08-19] MEDS: IPRATROPIUM/ALBUTEROL 0.5-3(2.5)MG/3ML NEB HHN SCH ×6 (01:10→20:10)
[2018-08-19 04:00] VITALS: BP 116/47
[2018-08-19] MEDS: BLOOD SUGAR DIAGNOSTIC STRIP TEST SCH ×4 (05:52→21:31)
[2018-08-19] MEDS: FUROSEMIDE 100MG/10ML VIAL IV SCH ×2 (06:01→17:59)
[2018-08-19] MEDS: METOLAZONE 2.5MG TABLET PO SCH (06:01)
[2018-08-19 06:38] LABS: BASOPHILS % 0.3 % (0.0-2.0); EOSINOPHILS % 2.1 % (0.0-5.0); HEMATOCRIT. 32.3 % (42.0-52.0); HEMOGLOBIN. 10.3 g/dL (14.0-18.0); LYMPHOCYTES % 16.9 % (20.0-50.0); MEAN CORPUSCULAR HEMOGLOBIN 22.5 pg (28.0-32.0); MEAN CORPUSCULAR VOLUME 70.5 fL (80.0-94.0); MEAN PLATELET VOLUME 7.4 fl (7.4-10.4); MONOCYTES % 9.4 % (2.0-8.0); NEUTROPHILS % 71.3 % (40.0-76.0); PLATELET 264 x1000/uL (130-400); RED BLOOD CELL COUNT 4.58 mill/uL (4.7-6.1); RED CELL DISTRIBUTION WIDTH 19.5 % (11.6-14.6)
[2018-08-19 06:39] LABS: CHLORIDE 98 mEq/L (98-107)
[2018-08-19 06:42] LABS: INR 2.2; PROTHROMBIN TIME 21.9 sec (9.6-11.0)
[2018-08-19 08:02] VITALS: BP 104/49
[2018-08-19] MEDS: INSULIN LISPRO 100 UNITS/ML SUBCUT SCH ×4 (08:10→21:31)
[2018-08-19] MEDS: ASPIRIN 81MG TABLET PO SCH (08:34)
[2018-08-19] MEDS: POTASSIUM CHLORIDE 20MEQ TABLET SR PO SCH (08:35)
[2018-08-19] MEDS: METFORMIN HCL 500MG TABLET PO SCH ×2 (08:35→17:59)
[2018-08-19] MEDS: FAMOTIDINE 20MG TABLET PO SCH (08:36)
[2018-08-19] MEDS: GABAPENTIN 300MG CAPSULE PO SCH ×3 (08:38→21:29)
[2018-08-19] MEDS: CLOTRIMAZOLE 1% CREAM 30GM TOP SCH (08:39)
[2018-08-19] MEDS: LOSARTAN POTASSIUM 50 MG TABLET PO SCH (08:52)
[2018-08-19] MEDS: INSULIN GLARGINE UD 100 UNITS/ML SYR SUBCUT SCH ×2 (10:27→21:30)
[2018-08-19 12:00] VITALS: BP 110/54
[2018-08-19 16:00] VITALS: BP 110/60
[2018-08-19] MEDS ORDERED: WARFARIN SODIUM 3MG TABLET PO SCH (18:00)
[2018-08-19 20:00] VITALS: BP 125/58
[2018-08-19] MEDS: CARVEDILOL 6.25 MG TABLET PO SCH (21:29)
[2018-08-19] MEDS: LORAZEPAM 1MG TABLET PO PRN (21:29)
[2018-08-19] MEDS: ATORVASTATIN CALCIUM 40MG TABLET PO SCH (21:34)
[2018-08-20] VITALS: BP 115/56
[2018-08-20] MEDS: IPRATROPIUM/ALBUTEROL 0.5-3(2.5)MG/3ML NEB HHN SCH ×6 (00:14→20:12)
[2018-08-20 04:00] VITALS: BP 109/49
[2018-08-20] MEDS: METOLAZONE 2.5MG TABLET PO SCH (05:34)
[2018-08-20] MEDS: FUROSEMIDE 100MG/10ML VIAL IV SCH ×2 (06:07→18:18)
[2018-08-20] MEDS: BLOOD SUGAR DIAGNOSTIC STRIP TEST SCH ×4 (06:24→21:17)
[2018-08-20 07:14] LABS: INR 1.8; PROTHROMBIN TIME 18.4 sec (9.6-11.0)
[2018-08-20] MEDS: INSULIN LISPRO 100 UNITS/ML SUBCUT SCH ×4 (07:38→21:18)
[2018-08-20 08:00] VITALS: BP_SYST 134
[2018-08-20] MEDS: METFORMIN HCL 500MG TABLET PO SCH ×2 (08:02→18:18)
[2018-08-20] MEDS: POTASSIUM CHLORIDE 20MEQ TABLET SR PO SCH (08:02)
[2018-08-20] MEDS: ASPIRIN 81MG TABLET PO SCH (08:02)
[2018-08-20] MEDS: GABAPENTIN 300MG CAPSULE PO SCH ×3 (08:02→21:16)
[2018-08-20] MEDS: FAMOTIDINE 20MG TABLET PO SCH (08:02)
[2018-08-20] MEDS: CARVEDILOL 6.25 MG TABLET PO SCH ×2 (08:03→21:17)
[2018-08-20] MEDS: CLOTRIMAZOLE 1% CREAM 30GM TOP SCH (08:03)
[2018-08-20] MEDS: LOSARTAN POTASSIUM 50 MG TABLET PO SCH (08:04)
[2018-08-20] MEDS: INSULIN GLARGINE UD 100 UNITS/ML SYR SUBCUT SCH ×2 (13:09→21:19)
[2018-08-20 16:00] VITALS: BP 121/57
[2018-08-20] MEDS ORDERED: GUAIFENESIN-DM 200MG-20MG/10ML UDC PO PRN (17:45)
[2018-08-20] MEDS ORDERED: WARFARIN SODIUM 5MG TABLET PO SCH (18:00)
[2018-08-20 20:00] VITALS: BP 119/61
[2018-08-20] MEDS: GUAIFENESIN 600MG ER TABLET PO SCH (21:17)
[2018-08-20] MEDS: ATORVASTATIN CALCIUM 40MG TABLET PO SCH (21:17)
[2018-08-21] VITALS: BP 103/65
[2018-08-21] MEDS: IPRATROPIUM/ALBUTEROL 0.5-3(2.5)MG/3ML NEB HHN SCH ×6 (00:11→20:24)
[2018-08-21 04:00] VITALS: BP 100/57
[2018-08-21] MEDS: METOLAZONE 2.5MG TABLET PO SCH (05:30)
[2018-08-21] MEDS: FUROSEMIDE 100MG/10ML VIAL IV SCH ×2 (05:31→18:20)
[2018-08-21 06:43] LABS: INR 1.6; PROTHROMBIN TIME 16.7 sec (9.6-11.0)
[2018-08-21 06:53] LABS: BASOPHILS % 0.3 % (0.0-2.0); EOSINOPHILS % 2.9 % (0.0-5.0); HEMATOCRIT. 36.5 % (42.0-52.0); HEMOGLOBIN. 11.8 g/dL (14.0-18.0); LYMPHOCYTES % 15.4 % (20.0-50.0); MEAN CORPUSCULAR HEMOGLOBIN 22.7 pg (28.0-32.0); MEAN PLATELET VOLUME 7.6 fl (7.4-10.4); MONOCYTES % 9.8 % (2.0-8.0); NEUTROPHILS % 71.6 % (40.0-76.0); PLATELET 304 x1000/uL (130-400); RED BLOOD CELL COUNT 5.22 mill/uL (4.7-6.1); RED CELL DISTRIBUTION WIDTH 19.5 % (11.6-14.6)
[2018-08-21] MEDS: BLOOD SUGAR DIAGNOSTIC STRIP TEST SCH ×4 (06:54→21:08)
[2018-08-21 08:00] VITALS: BP 110/58
[2018-08-21] MEDS: INSULIN LISPRO 100 UNITS/ML SUBCUT SCH ×4 (08:10→21:00)
[2018-08-21] MEDS: METFORMIN HCL 500MG TABLET PO SCH ×2 (08:54→18:21)
[2018-08-21] MEDS: ASPIRIN 81MG TABLET PO SCH (08:55)
[2018-08-21] MEDS: LOSARTAN POTASSIUM 50 MG TABLET PO SCH (08:55)
[2018-08-21] MEDS: POTASSIUM CHLORIDE 20MEQ TABLET SR PO SCH (08:55)
[2018-08-21] MEDS: GUAIFENESIN 600MG ER TABLET PO SCH ×2 (08:55→21:07)
[2018-08-21] MEDS: GABAPENTIN 300MG CAPSULE PO SCH ×3 (08:55→21:07)
[2018-08-21] MEDS: FAMOTIDINE 20MG TABLET PO SCH (08:55)
[2018-08-21] MEDS: CARVEDILOL 6.25 MG TABLET PO SCH ×2 (08:55→21:00)
[2018-08-21] MEDS: INSULIN GLARGINE UD 100 UNITS/ML SYR SUBCUT SCH ×2 (09:01→21:07)
[2018-08-21] MEDS: NITROGLYCERIN OINT 1GM/INCH UDPKT TD SCH ×3 (10:00→21:08)
[2018-08-21] MEDS: CLOTRIMAZOLE 1% CREAM 30GM TOP SCH (11:38)
[2018-08-21 11:46] VITALS: BP 94/37
[2018-08-21 16:00] VITALS: BP 123/89
[2018-08-21 20:00] VITALS: BP_SYST 79; BP_SYST 85; BP_DIAS 37; BP_DIAS 42
[2018-08-21] MEDS ORDERED: REGADENOSON 0.4 MG/5 ML IV NR (20:00)
[2018-08-21] MEDS: ATORVASTATIN CALCIUM 40MG TABLET PO SCH (21:07)
[2018-08-22] VITALS (7 sets, daily range): BP systolic 79–110; BP diastolic 32–52
[2018-08-22] MEDS: IPRATROPIUM/ALBUTEROL 0.5-3(2.5)MG/3ML NEB HHN SCH ×5 (00:36→22:08)
[2018-08-22] MEDS: METOLAZONE 2.5MG TABLET PO SCH (05:30)
[2018-08-22] MEDS: FUROSEMIDE 100MG/10ML VIAL IV SCH (05:55)
[2018-08-22] MEDS: NITROGLYCERIN OINT 1GM/INCH UDPKT TD SCH ×3 (05:55→21:31)
[2018-08-22 06:15] LABS: INR 1.7; PROTHROMBIN TIME 17.4 sec (9.6-11.0)
[2018-08-22 06:42] LABS: BASOPHILS % 0.2 % (0.0-2.0); EOSINOPHILS % 2.9 % (0.0-5.0); HEMATOCRIT. 32.7 % (42.0-52.0); HEMOGLOBIN. 10.7 g/dL (14.0-18.0); LYMPHOCYTES % 17.2 % (20.0-50.0); MEAN CORPUSCULAR HEMOGLOBIN 22.9 pg (28.0-32.0); MEAN CORPUSCULAR VOLUME 70.2 fL (80.0-94.0); MEAN PLATELET VOLUME 7.5 fl (7.4-10.4); MONOCYTES % 10.4 % (2.0-8.0); NEUTROPHILS % 69.3 % (40.0-76.0); PLATELET 291 x1000/uL (130-400); RED BLOOD CELL COUNT 4.66 mill/uL (4.7-6.1); RED CELL DISTRIBUTION WIDTH 19.6 % (11.6-14.6)
[2018-08-22] MEDS: BLOOD SUGAR DIAGNOSTIC STRIP TEST SCH ×4 (06:49→21:27)
[2018-08-22 07:18] LABS: CHLORIDE 90 mEq/L (98-107)
[2018-08-22] MEDS: INSULIN LISPRO 100 UNITS/ML SUBCUT SCH ×4 (08:08→21:35)
[2018-08-22] MEDS: LOSARTAN POTASSIUM 50 MG TABLET PO SCH (09:00)
[2018-08-22] MEDS: GUAIFENESIN 600MG ER TABLET PO SCH ×2 (09:00→21:27)
[2018-08-22] MEDS: POTASSIUM CHLORIDE 20MEQ TABLET SR PO SCH (09:00)
[2018-08-22] MEDS: ASPIRIN 81MG TABLET PO SCH (09:00)
[2018-08-22] MEDS: FAMOTIDINE 20MG TABLET PO SCH (09:00)
[2018-08-22] MEDS: CARVEDILOL 6.25 MG TABLET PO SCH ×2 (09:00→21:27)
[2018-08-22] MEDS: GABAPENTIN 300MG CAPSULE PO SCH ×3 (09:00→21:27)
[2018-08-22] MEDS: INSULIN GLARGINE UD 100 UNITS/ML SYR SUBCUT SCH ×2 (10:00→21:35)
[2018-08-22] MEDS ORDERED: IODIXANOL 320MG/ML 100 ML BOTTLE IV ONE (10:19)
[2018-08-22] MEDS ORDERED: FENTANYL CITRATE/PF 50MCG/ML 2ML VIAL ONE (10:19)
[2018-08-22] MEDS ORDERED: LIDOCAINE HCL 1% 20ML VIAL (Pyxis) INJ ONE ×2 (10:19→11:03)
[2018-08-22] MEDS ORDERED: MIDAZOLAM HCL 2 MG/2 ML VIAL ONE (10:19)
[2018-08-22] MEDS ORDERED: HEPARIN 1,000 UNITS PREMIX 0 ML IV ONE (10:20)
[2018-08-22] MEDS ORDERED: SODIUM CHLORIDE 0.45% 500 ML IV ONE (10:30)
[2018-08-22] MEDS ORDERED: SODIUM CHLORIDE 0.9% 500 ML IV ONE (12:00)
[2018-08-22 14:23] LABS: CLARITY URINE CLEAR (CLEAR); COLOR URINE YELLOW (YELLOW); KETONES URINE NEGATIVE (NEGATIVE); LEUKOCYTE ESTERASE URINE NEGATIVE (NEGATIVE); NITRITE URINE NEGATIVE (NEGATIVE); OCCULT BLOOD URINE NEGATIVE (NEGATIVE); PH URINE 6.5 (4.5-8.0); PROTEIN URINE NEGATIVE (NEGATIVE); SPECIFIC GRAVITY URINE 1.014 (1.005-1.030); UROBILINOGEN URINE 0.2 E.U./dL (0.2-1.0)
[2018-08-22] MEDS: CLOTRIMAZOLE 1% CREAM 30GM TOP SCH (15:14)
[2018-08-22] MEDS ORDERED: WARFARIN SODIUM 5MG TABLET PO SCH (18:00)
[2018-08-22] MEDS: ATORVASTATIN CALCIUM 40MG TABLET PO SCH (21:26)
[2018-08-23] VITALS: BP 108/46
[2018-08-23] MEDS: IPRATROPIUM/ALBUTEROL 0.5-3(2.5)MG/3ML NEB HHN SCH ×6 (01:16→22:17)
[2018-08-23 04:00] VITALS: BP 129/63
[2018-08-23 07:01] LABS: INR 1.4; PROTHROMBIN TIME 14.4 sec (9.6-11.0)
[2018-08-23] MEDS: NITROGLYCERIN OINT 1GM/INCH UDPKT TD SCH ×3 (07:05→21:13)
[2018-08-23] MEDS: BLOOD SUGAR DIAGNOSTIC STRIP TEST SCH ×4 (07:05→20:31)
[2018-08-23 07:07] LABS: BASOPHILS % 0.1 % (0.0-2.0); EOSINOPHILS % 1.9 % (0.0-5.0); HEMATOCRIT. 33.1 % (42.0-52.0); HEMOGLOBIN. 10.6 g/dL (14.0-18.0); LYMPHOCYTES % 16.7 % (20.0-50.0); MEAN CORPUSCULAR HEMOGLOBIN 22.5 pg (28.0-32.0); MEAN CORPUSCULAR VOLUME 70.4 fL (80.0-94.0); MEAN PLATELET VOLUME 7.4 fl (7.4-10.4); MONOCYTES % 10.5 % (2.0-8.0); NEUTROPHILS % 70.8 % (40.0-76.0); PLATELET 288 x1000/uL (130-400); RED CELL DISTRIBUTION WIDTH 19.5 % (11.6-14.6)
[2018-08-23 07:30] LABS: CHLORIDE 95 mEq/L (98-107)
[2018-08-23 07:37] LABS: PHOSPHORUS 3.2 mg/dL (2.5-4.9)
[2018-08-23] MEDS: CARVEDILOL 6.25 MG TABLET PO SCH ×2 (09:00→21:12)
[2018-08-23] MEDS: GUAIFENESIN 600MG ER TABLET PO SCH ×2 (09:08→21:12)
[2018-08-23] MEDS: CLOTRIMAZOLE 1% CREAM 30GM TOP SCH (09:08)
[2018-08-23] MEDS: GABAPENTIN 300MG CAPSULE PO SCH ×3 (09:08→21:13)
[2018-08-23] MEDS: FAMOTIDINE 20MG TABLET PO SCH (09:08)
[2018-08-23] MEDS: ASPIRIN 81MG TABLET PO SCH (09:09)
[2018-08-23] MEDS: INSULIN LISPRO 100 UNITS/ML SUBCUT SCH ×4 (09:11→20:31)
[2018-08-23 10:34] LABS: BG CARBOXYHEMOGLOBIN 1.2 % (0.5-1.5); BG DEOXYHEMOGLOBIN 11.9 % (0.0-5.0); BG FRACTION INSPIRED OXYGEN 21; BG METHEMOGLOBIN 0.1 % (0.0-1.5); BG OXYGEN SATURATION 87.9 % (92.0-98.5); BG OXYHEMOGLOBIN 86.8 % (94.0-97.0); BG PCO2 44.8 mmHg (35.0-45.0); BG PH 7.414 (7.350-7.450); BG PO2 57.7 mmHg (75.0-100.0); BG SAMPLE SITE RIGHT RADIAL; BG TOTAL HEMOGLOBIN 11.8 g/dL (12.0-18.0); BG VENT MODE ROOM AIR
[2018-08-23] MEDS: INSULIN GLARGINE UD 100 UNITS/ML SYR SUBCUT SCH ×2 (10:57→21:14)
[2018-08-23] MEDS: SODIUM CHLORIDE 0.9% 1,000 ML IV SCH (11:05)
[2018-08-23 12:00] VITALS: BP 110/46
[2018-08-23 16:00] VITALS: BP 118/56
[2018-08-23] MEDS ORDERED: WARFARIN SODIUM 5MG TABLET PO SCH (18:00)
[2018-08-23 20:00] VITALS: BP 129/52
[2018-08-23] MEDS ORDERED: LORAZEPAM 1MG TABLET PO PRN (20:15)
[2018-08-23] MEDS: ATORVASTATIN CALCIUM 40MG TABLET PO SCH (21:12)
[2018-08-24] VITALS: BP 121/50
[2018-08-24] MEDS: IPRATROPIUM/ALBUTEROL 0.5-3(2.5)MG/3ML NEB HHN SCH ×4 (01:55→13:01)
[2018-08-24 04:00] VITALS: BP 111/54
[2018-08-24] MEDS: NITROGLYCERIN OINT 1GM/INCH UDPKT TD SCH ×2 (05:17→13:23)
[2018-08-24] MEDS: BLOOD SUGAR DIAGNOSTIC STRIP TEST SCH ×2 (06:47→12:40)
[2018-08-24 06:52] LABS: INR 1.4
[2018-08-24 06:59] LABS: BASOPHILS % 0.3 % (0.0-2.0); EOSINOPHILS % 2.3 % (0.0-5.0); HEMATOCRIT. 32.8 % (42.0-52.0); HEMOGLOBIN. 10.4 g/dL (14.0-18.0); LYMPHOCYTES % 19.3 % (20.0-50.0); MEAN CORPUSCULAR HEMOGLOBIN 22.2 pg (28.0-32.0); MEAN CORPUSCULAR VOLUME 70.4 fL (80.0-94.0); MEAN PLATELET VOLUME 7.4 fl (7.4-10.4); MONOCYTES % 10.9 % (2.0-8.0); NEUTROPHILS % 67.2 % (40.0-76.0); PLATELET 255 x1000/uL (130-400); RED BLOOD CELL COUNT 4.66 mill/uL (4.7-6.1)
[2018-08-24 07:18] LABS: CHLORIDE 98 mEq/L (98-107)
[2018-08-24] MEDS: SODIUM CHLORIDE 0.9% 1,000 ML IV SCH (07:23)
[2018-08-24] MEDS: INSULIN LISPRO 100 UNITS/ML SUBCUT SCH ×2 (07:41→13:21)
[2018-08-24 08:00] VITALS: BP 110/57
[2018-08-24] MEDS: GABAPENTIN 300MG CAPSULE PO SCH ×2 (10:45→13:21)
[2018-08-24] MEDS: CARVEDILOL 6.25 MG TABLET PO SCH (10:45)
[2018-08-24] MEDS: GUAIFENESIN 600MG ER TABLET PO SCH (10:45)
[2018-08-24] MEDS: FAMOTIDINE 20MG TABLET PO SCH (10:45)
[2018-08-24] MEDS: ASPIRIN 81MG TABLET PO SCH (10:45)
[2018-08-24] MEDS: CLOTRIMAZOLE 1% CREAM 30GM TOP SCH (10:46)
[2018-08-24] MEDS: INSULIN GLARGINE UD 100 UNITS/ML SYR SUBCUT SCH (10:47)
[2018-08-24 11:02] VITALS: BP 110/57
[2018-08-24 12:00] VITALS: BP 116/53
== END 2018-08-24 15:10 | disposition home health service (06) | DRG 291 ==
LOC: ER 17:35 → 7WST 20:13 → ENRESERV 20:45
PROVIDERS: ADMIT Internal Medicine; ATTEND Internal Medicine
PROC: 02HV33Z Insertion of Infusion Device into Superior Vena Cava, Percutaneous Approach (ICD-10-PCS; principal; 2018-08-22)
PROC: B5181ZA Fluoroscopy of Superior Vena Cava using Low Osmolar Contrast, Guidance (ICD-10-PCS; 2018-08-22)
PROC: B548ZZA Ultrasonography of Superior Vena Cava, Guidance (ICD-10-PCS; 2018-08-22)
DX: I11.0 Hypertensive heart disease with heart failure (principal); J96.91 Respiratory failure, unspecified with hypoxia; N17.0 Acute kidney failure with tubular necrosis; E87.3 Alkalosis; I48.1 Persistent atrial fibrillation; E87.1 Hypo-osmolality and hyponatremia; I50.23 Acute on chronic systolic (congestive) heart failure; I25.5 Ischemic cardiomyopathy; J44.9 Chronic obstructive pulmonary disease, unspecified; Z95.1 Presence of aortocoronary bypass graft; I48.2 Chronic atrial fibrillation; I27.20 Pulmonary hypertension, unspecified; E11.51 Type 2 diabetes mellitus with diabetic peripheral angiopathy without gangrene; E11.42 Type 2 diabetes mellitus with diabetic polyneuropathy; D64.9 Anemia, unspecified; B35.3 Tinea pedis; E11.65 Type 2 diabetes mellitus with hyperglycemia; E78.00 Pure hypercholesterolemia, unspecified; E78.5 Hyperlipidemia, unspecified; I25.10 Atherosclerotic heart disease of native coronary artery without angina pectoris; I50.82 Biventricular heart failure; K21.9 Gastro-esophageal reflux disease without esophagitis; L85.3 Xerosis cutis; T50.2X5A Adverse effect of carbonic-anhydrase inhibitors, benzothiadiazides and other diuretics, initial encounter; Z79.01 Long term (current) use of anticoagulants; Z79.4 Long term (current) use of insulin; Z79.899 Other long term (current) drug therapy; Z82.49 Family history of ischemic heart disease and other diseases of the circulatory system; Z87.891 Personal history of nicotine dependence; Z83.3 Family history of diabetes mellitus; Y92.89 Other specified places as the place of occurrence of the external cause
CPT/HCPCS: 36415; 36569; 36573; 36600; 71045; 71250; 76770; 78582; 80048; 80061; 82375; 82550; 82553; 82570; 82805; 82962; 83036; 83735; 83880; 84100; 84300; 84443; 84484; 84540; 85379; 87493; 93005; 93306; 93970; 94640; 96374; 96375; 99285; A9558; C1725; J1644; J1815; J1940; J2250; J2270; J2405; J2930; J3010; J3475; J3490; J7030; J7040; J7050; J7611; J7620; Q9967

== ENCOUNTER 2020-04-28 12:43 | Inpatient (IN) | payer MEDICARE, OTHER ==
[~2020-04-28] VITALS: Ht 167.6 cm; Wt 85.5 kg
[~2020-04-28 12:43] MED LIST changes: -ASPI-1393 PO; +ASPI-1497 PO; +ATROV INH; -CLOT15CR2 TP; +DIPH1TAB24 MT; -DIPH1TAB24 PO; -GABA-531 PO; +INSU100I28 SQ; -LORA1TAB PO; +METO100T16 MT; -METO100T16 PO; -MULT-379 PO; -OMEP20CA5 PO; +SIME80TA15 MT; -SIMV40TA5 PO; +WARF3TAB58 MT; -WARF6TAB48 PO; -[UNRECOGNIZED DRUG - OTHER] PO
[2020-04-28] MEDS ORDERED: NITROGLYCERIN OINT 1GM/INCH UDPKT TD ONE (13:45)
[2020-04-28 15:13] LABS: BASOPHILS % 0.3 % (0.0-2.0); EOSINOPHILS % 0.7 % (0.0-5.0); HEMOGLOBIN. 10.7 g/dL (14.0-18.0); LYMPHOCYTES % 14.5 % (20.0-50.0); MEAN CORPUSCULAR HEMOGLOBIN 23.5 pg (28.0-32.0); MEAN CORPUSCULAR VOLUME 77.2 fL (80.0-94.0); MEAN PLATELET VOLUME 7.8 fl (7.4-10.4); MONOCYTES % 5.4 % (2.0-8.0); NEUTROPHILS % 79.1 % (40.0-76.0); PLATELET 349 x1000/uL (130-400); RED BLOOD CELL COUNT 4.54 mill/uL (4.7-6.1); RED CELL DISTRIBUTION WIDTH 18.4 % (11.6-14.6)
[2020-04-28 15:17] LABS: CHLORIDE 109 mEq/L (98-107)
[2020-04-28 15:33] LABS: INR 7.6; PROTHROMBIN TIME 69.1 sec (9.6-11.0)
[2020-04-28] MEDS ORDERED: DEXTROSE 50% WATER 50ML SYRINGE IV ONE (16:00)
[2020-04-28] MEDS ORDERED: INSULIN REGULAR (HUMULIN R) 300UNITS/3ML VIAL IV ONE (16:00)
[2020-04-28] MEDS ORDERED: SODIUM BICARBONATE 8.4% 1 MEQ/ML 50ML SYR IV ONE (16:00)
[2020-04-28] MEDS ORDERED: ALBUTEROL (0.083%) 2.5MG/3ML NEB HHN ONE (16:00)
[2020-04-28] MEDS ORDERED: CALCIUM CHLORIDE 1GM/10ML SYR IV ONE (16:00)
[2020-04-28] MEDS ORDERED: PHYTONADIONE 10MG/ML AMP SUBCUT NR (16:15)
[2020-04-28 16:16] LABS: CLARITY URINE CLEAR (CLEAR); COLOR URINE YELLOW (YELLOW); KETONES URINE NEGATIVE (NEGATIVE); LEUKOCYTE ESTERASE URINE NEGATIVE (NEGATIVE); NITRITE URINE NEGATIVE (NEGATIVE); OCCULT BLOOD URINE NEGATIVE (NEGATIVE); PH URINE 6.5 (4.5-8.0); PROTEIN URINE 1+ (NEGATIVE); SPECIFIC GRAVITY URINE 1.014 (1.005-1.030); UROBILINOGEN URINE 0.2 E.U./dL (0.2-1.0)
[2020-04-28] MEDS ORDERED: GUAIFENESIN 200MG/10ML SUGAR FREE UDC PO PRN (17:45)
[2020-04-28] MEDS ORDERED: ACETAMINOPHEN 325MG TABLET PO PRN ×2 (17:45)
[2020-04-28] MEDS ORDERED: TRAMADOL 50MG TABLET PO PRN (17:45)
[2020-04-28] MEDS ORDERED: LORAZEPAM 0.5MG TABLET PO PRN (17:45)
[2020-04-28] MEDS ORDERED: ONDANSETRON HCL 4MG/2ML INJ IV PRN (17:45)
[2020-04-28] MEDS ORDERED: NITROGLYCERIN 0.4MG TABLET SL SL PRN (17:45)
[2020-04-28] MEDS ORDERED: DOCUSATE SODIUM 100MG CAPSULE PO PRN (17:45)
[2020-04-28] MEDS ORDERED: CLONIDINE 0.1MG TABLET PO PRN (17:45)
[2020-04-28] MEDS ORDERED: IPRATROPIUM/ALBUTEROL 0.5-3(2.5)MG/3ML NEB NEB PRN (17:45)
[2020-04-28] MEDS ORDERED: MAGNESIUM/ALUMINUM HYDROXIDE/SIMETHICONE 30ML UDC PO PRN (17:45)
[2020-04-28] MEDS ORDERED: DEXTROSE 50% WATER 50ML SYRINGE IV PRN (18:00)
[2020-04-28] MEDS ORDERED: FUROSEMIDE 40MG/4ML VIAL IVP NR (18:00)
[2020-04-28] MEDS: INSULIN LISPRO 100 UNITS/ML SUBCUT SCH ×2 (18:20→21:00)
[2020-04-28] MEDS: CYANOCOBALAMIN 1000MCG/ML VIAL IM SCH (18:24)
[2020-04-28 18:41] LABS: FOLIC ACID (FOLATE) SERUM 13.1 ng/mL (>5.38)
[2020-04-28] MEDS ORDERED: ZOLPIDEM TARTRATE 5MG TABLET PO PRN (20:00)
[2020-04-28] MEDS: BLOOD SUGAR DIAGNOSTIC STRIP TEST SCH (21:12)
[2020-04-28] MEDS: ASCORBIC ACID 500 MG TABLET PO SCH (21:21)
[2020-04-28] MEDS: FAMOTIDINE 20MG TABLET PO SCH (21:21)
[2020-04-28] MEDS: INSULIN GLARGINE UD 100 UNITS/ML SYR SUBCUT SCH (22:42)
[2020-04-29 05:17] LABS: PHOSPHORUS 4.5 mg/dL (2.5-4.9)
[2020-04-29 06:18] LABS: INR 4.7
[2020-04-29] MEDS: BLOOD SUGAR DIAGNOSTIC STRIP TEST SCH ×4 (06:48→21:00)
[2020-04-29] MEDS: INSULIN LISPRO 100 UNITS/ML SUBCUT SCH ×3 (06:49→21:00)
[2020-04-29 07:00] LABS: CHLORIDE 108 mEq/L (98-107)
[2020-04-29 07:11] LABS: BASOPHILS % 0.3 % (0.0-2.0); EOSINOPHILS % 1.2 % (0.0-5.0); HEMATOCRIT. 30.3 % (42.0-52.0); HEMOGLOBIN. 9.6 g/dL (14.0-18.0); MEAN CORPUSCULAR HEMOGLOBIN 24.1 pg (28.0-32.0); MEAN CORPUSCULAR VOLUME 76.1 fL (80.0-94.0); MEAN PLATELET VOLUME 7.7 fl (7.4-10.4); MONOCYTES % 10.1 % (2.0-8.0); NEUTROPHILS % 73.4 % (40.0-76.0); PLATELET 307 x1000/uL (130-400); RED BLOOD CELL COUNT 3.99 mill/uL (4.7-6.1)
[2020-04-29] MEDS ORDERED: FUROSEMIDE 40MG/4ML VIAL IVP SCH (09:00)
[2020-04-29] MEDS ORDERED: INSULIN REGULAR (HUMULIN R) 300UNITS/3ML VIAL IV SCH ×2 (09:00→09:30)
[2020-04-29] MEDS ORDERED: SODIUM POLYSTYRENE SULFONATE 15 G/60 ML BOT PO SCH ×2 (09:00→16:00)
[2020-04-29] MEDS ORDERED: ENOXAPARIN 40MG/0.4ML SYR SUBCUT SCH (09:00)
[2020-04-29] MEDS ORDERED: DEXTROSE 50% WATER 50ML SYRINGE IV SCH (09:00)
[2020-04-29] MEDS: ASCORBIC ACID 500 MG TABLET PO SCH (09:32)
[2020-04-29] MEDS: CHOLECALCIFEROL (D3) 1000 UNIT TABLET PO SCH (09:33)
[2020-04-29] MEDS: AMLODIPINE 5MG TABLET PO SCH (09:33)
[2020-04-29 10:23] LABS: BG BASE EXCESS -6.4 mmol/L (-2.0-2.0); BG CARBOXYHEMOGLOBIN 0.3 % (0.5-1.5); BG DEOXYHEMOGLOBIN 5.5 % (0.0-5.0); BG FRACTION INSPIRED OXYGEN 28; BG HCO3 ACT 18.4 mmol/L (22.0-26.0); BG METHEMOGLOBIN 0.3 % (0.0-1.5); BG OXYGEN SATURATION 94.5 % (92.0-98.5); BG OXYHEMOGLOBIN 93.9 % (94.0-97.0); BG PCO2 34.2 mmHg (35.0-45.0); BG PH 7.349 (7.350-7.450); BG PO2 77.2 mmHg (75.0-100.0); BG SAMPLE SITE RIGHT RADIAL; BG TOTAL HEMOGLOBIN 10.5 g/dL (12.0-18.0); BG VENT MODE NASAL CANNULA
[2020-04-29 13:12] LABS: SODIUM URINE RANDOM 91 mEq/L
[2020-04-29 15:16] VITALS: BP 126/63
[2020-04-29 15:17] VITALS: BP 126/63
[2020-04-29] MEDS: CYANOCOBALAMIN 1000MCG/ML VIAL IM SCH (15:38)
[2020-04-29 16:01] VITALS: BP 126/73
[2020-04-29 18:00] VITALS: BP 112/81
[2020-04-29 20:00] VITALS: BP 139/70
[2020-04-29 22:00] VITALS: BP 142/72
[2020-04-29] MEDS: INSULIN GLARGINE UD 100 UNITS/ML SYR SUBCUT SCH (22:00)
[2020-04-30] VITALS (12 sets, daily range): BP systolic 110–139; BP diastolic 45–70
[2020-04-30] MEDS: ASCORBIC ACID 500 MG TABLET PO SCH ×3 (01:44→21:39)
[2020-04-30] MEDS: FAMOTIDINE 20MG TABLET PO SCH ×2 (01:44→21:39)
[2020-04-30] MEDS: INSULIN LISPRO 100 UNITS/ML SUBCUT SCH ×4 (07:20→21:00)
[2020-04-30] MEDS: BLOOD SUGAR DIAGNOSTIC STRIP TEST SCH ×4 (07:21→21:54)
[2020-04-30] MEDS: FUROSEMIDE 40MG/4ML VIAL IVP SCH ×2 (09:21→21:39)
[2020-04-30] MEDS: CHOLECALCIFEROL (D3) 1000 UNIT TABLET PO SCH (09:21)
[2020-04-30] MEDS: CYANOCOBALAMIN 1000MCG/ML VIAL IM SCH (09:21)
[2020-04-30] MEDS: AMLODIPINE 5MG TABLET PO SCH (09:25)
[2020-04-30 09:48] LABS: BASOPHILS % 0.6 % (0.0-2.0); EOSINOPHILS % 1.6 % (0.0-5.0); HEMATOCRIT. 34.3 % (42.0-52.0); HEMOGLOBIN. 10.8 g/dL (14.0-18.0); LYMPHOCYTES % 14.8 % (20.0-50.0); MEAN CORPUSCULAR HEMOGLOBIN 23.7 pg (28.0-32.0); MEAN CORPUSCULAR VOLUME 75.7 fL (80.0-94.0); MEAN PLATELET VOLUME 7.5 fl (7.4-10.4); MONOCYTES % 7.8 % (2.0-8.0); NEUTROPHILS % 75.2 % (40.0-76.0); PLATELET 321 x1000/uL (130-400); RED BLOOD CELL COUNT 4.54 mill/uL (4.7-6.1); RED CELL DISTRIBUTION WIDTH 18.1 % (11.6-14.6)
[2020-04-30] MEDS: INSULIN GLARGINE UD 100 UNITS/ML SYR SUBCUT SCH (22:00)
[2020-05-01] VITALS: BP 115/64
[2020-05-01 02:00] VITALS: BP 121/66
[2020-05-01 04:00] VITALS: BP 112/44
[2020-05-01 06:00] VITALS: BP 122/74
[2020-05-01] MEDS: BLOOD SUGAR DIAGNOSTIC STRIP TEST SCH (07:09)
[2020-05-01 07:15] LABS: INR 1.3; PROTHROMBIN TIME 13.5 sec (9.6-11.0)
[2020-05-01] MEDS: INSULIN LISPRO 100 UNITS/ML SUBCUT SCH (07:20)
[2020-05-01 07:23] LABS: BASOPHILS % 0.4 % (0.0-2.0); EOSINOPHILS % 1.7 % (0.0-5.0); HEMATOCRIT. 31.1 % (42.0-52.0); HEMOGLOBIN. 10.3 g/dL (14.0-18.0); LYMPHOCYTES % 16.7 % (20.0-50.0); MEAN CORPUSCULAR HEMOGLOBIN 24.6 pg (28.0-32.0); MEAN CORPUSCULAR VOLUME 74.2 fL (80.0-94.0); MEAN PLATELET VOLUME 7.5 fl (7.4-10.4); MONOCYTES % 12.9 % (2.0-8.0); NEUTROPHILS % 68.3 % (40.0-76.0); PLATELET 273 x1000/uL (130-400); RED CELL DISTRIBUTION WIDTH 18.2 % (11.6-14.6)
[2020-05-01 07:26] LABS: CHLORIDE 104 mEq/L (98-107)
[2020-05-01 07:31] LABS: PHOSPHORUS 4.1 mg/dL (2.5-4.9)
[2020-05-01 08:04] VITALS: BP 127/72
[2020-05-01] MEDS: FUROSEMIDE 40MG/4ML VIAL IVP SCH (08:25)
[2020-05-01] MEDS: CHOLECALCIFEROL (D3) 1000 UNIT TABLET PO SCH (08:25)
[2020-05-01] MEDS: CYANOCOBALAMIN 1000MCG/ML VIAL IM SCH (08:25)
[2020-05-01] MEDS: ASCORBIC ACID 500 MG TABLET PO SCH (08:26)
[2020-05-01] MEDS: AMLODIPINE 5MG TABLET PO SCH (08:27)
[2020-05-01] MEDS ORDERED: MAGNESIUM 2 G PREMIX 50 ML IV SCH (10:00)
[2020-05-01 10:03] VITALS: BP 127/72
== END 2020-05-01 11:47 | disposition home health service (06) | DRG 291 ==
LOC: ER 13:01 → MICUSO 15:55 → EDBEDREQSVC 16:00 → EDBEDREQ 16:00 → 6WST 04-29 13:28 → UNDODISIN 04-29 13:58 → MICUSO 04-29 14:02 → 3WST 04-29 14:16
PROVIDERS: ADMIT Internal Medicine; ATTEND Internal Medicine
DX: I13.0 Hypertensive heart and chronic kidney disease with heart failure and stage 1 through stage 4 chronic kidney disease, or unspecified chronic kidney disease (principal); I50.43 Acute on chronic combined systolic (congestive) and diastolic (congestive) heart failure; J96.01 Acute respiratory failure with hypoxia; N17.9 Acute kidney failure, unspecified; E87.1 Hypo-osmolality and hyponatremia; E87.2 Acidosis; I48.92 Unspecified atrial flutter; I48.19 Other persistent atrial fibrillation; I42.9 Cardiomyopathy, unspecified; E87.5 Hyperkalemia; D63.8 Anemia in other chronic diseases classified elsewhere; E11.22 Type 2 diabetes mellitus with diabetic chronic kidney disease; E66.9 Obesity, unspecified; E78.5 Hyperlipidemia, unspecified; F17.210 Nicotine dependence, cigarettes, uncomplicated; T45.515A Adverse effect of anticoagulants, initial encounter; I08.1 Rheumatic disorders of both mitral and tricuspid valves; I25.10 Atherosclerotic heart disease of native coronary artery without angina pectoris; K21.9 Gastro-esophageal reflux disease without esophagitis; J44.9 Chronic obstructive pulmonary disease, unspecified; I73.9 Peripheral vascular disease, unspecified; E78.00 Pure hypercholesterolemia, unspecified; E83.42 Hypomagnesemia; I27.20 Pulmonary hypertension, unspecified; I48.0 Paroxysmal atrial fibrillation; N18.30 Chronic kidney disease, stage 3 unspecified; R79.1 Abnormal coagulation profile; Z20.822 Contact with and (suspected) exposure to COVID-19; Z95.1 Presence of aortocoronary bypass graft; I25.2 Old myocardial infarction; Z79.01 Long term (current) use of anticoagulants; Z79.4 Long term (current) use of insulin; Z82.49 Family history of ischemic heart disease and other diseases of the circulatory system; Z83.3 Family history of diabetes mellitus; Y92.89 Other specified places as the place of occurrence of the external cause; Z79.899 Other long term (current) drug therapy; Z68.30 Body mass index [BMI] 30.0-30.9, adult; Z79.82 Long term (current) use of aspirin
CPT/HCPCS: 36415; 36600; 71045; 76770; 80048; 80053; 80061; 81003; 82375; 82607; 82746; 82805; 82962; 83036; 83540; 83550; 83735; 83880; 83935; 84100; 84300; 84484; 85025; 93005; 93970; 94644; 97162; 97166; 99291; C9803; J1815; J1940; J3420; J3430; J3475; J3490; U0003